=== PATIENT | female | born 1965 | race Caucasian/White ===

== ENCOUNTER 2018-09-08 14:40 | Emergency (ER) | payer MEDICAID, OTHER ==
--- NOTE | 2018-09-08 15:02 | ED.PDOC ---
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 Timing/Duration: 1-3 hours Severity: moderate Improving Factors: nothing Worsening Factors: nothing Associated Symptoms: other - see hpi Allergies/Adverse Reactions: Allergies Citalopram [From Celexa] Allergy (Verified 09/08/18 15:00) Hydromorphone [From Dilaudid] Allergy (Verified 09/08/18 15:00) Lamotrigine [From Lamictal] Allergy (Verified 09/08/18 15:00) Morphine Allergy (Verified 09/08/18 15:00) Oxcarbazepine [From Trileptal] Allergy (Verified 09/08/18 15:00) Review of Systems - Review of Systems Constitutional: States: no symptoms reported EENTM: States: no symptoms reported Respiratory: States: no symptoms reported Cardiology: States: see HPI Gastrointestinal/Abdominal: States: no symptoms reported Genitourinary: States: no symptoms reported Musculoskeletal: States: no symptoms reported All other Systems: Reviewed and Negative, No Change from Baseline Past Medical History (General) - Patient Medical History Hx Seizures: Yes Hx Stroke: Yes Hx Hypertension: Yes Surgical History: cholecystectomy, other - btl,knee - Vaccination History Hx Tetanus, Diphtheria Vaccination: Yes Hx Influenza Vaccination: Yes Hx Pneumococcal Vaccination: No - Social History Hx Tobacco Use: Yes - Activities of Daily Living Hospice Agency (if applicable):: None - Female History Patient is a Female of Child Bearing Age (10 -59 yrs old): No Patient : No Family Medical History - Family History Mother Family History: Unknown Hx Family Stroke: Yes - brother Hx Cardiac Disease: Yes - parents Hx Family Cancer: Yes - dad brother-lungs Physical Exam - Physical Exam General Appearance: Alert, Comfortable, No apparent distress Eye Exam: bilateral normal Ears, Nose, Throat: hearing grossly normal, normal ENT inspection, normal pharynx Neck: non-tender, full range of motion, supple, normal inspection Respiratory: chest non-tender, lungs clear, normal breath sounds Cardiovascular/Chest: normal peripheral pulses, regular rate, rhythm, no murmur Peripheral Pulses: radial,right: 2+, radial,left: 2+ Gastrointestinal/Abdominal: non tender, soft, no organomegaly Back Exam: no CVA tenderness, no vertebral tenderness Extremity: no pedal edema, no calf tenderness Neurologic: alert, oriented x 3 Skin Exam: normal color, warm/dry Progress - Progress Progress: 09/08/18 19:36 Vital Signs - 8 hr 09/08/18 09/08/18 09/08/18 14:40 14:49 15:40 Temperature 97.8 F Pulse Rate [ 58 L 62 radial] Respiratory 18 18 18 Rate Blood Pressure 146/83 147/79 [Left Arm] O2 Sat by Pulse 94 L 95 Oximetry 09/08/18 09/08/18 09/08/18 16:19 16:25 17:00 Temperature Pulse Rate [ 67 66 63 radial] Respiratory 16 16 18 Rate Blood Pressure 138/74 113/65 114/63 [Left Arm] O2 Sat by Pulse 91 L 96 95 Oximetry 09/08/18 09/08/18 18:00 18:39 Temperature 97.9 F Pulse Rate [ 62 58 L radial] Respiratory 16 16 Rate Blood Pressure 103/60 116/91 [Left Arm] O2 Sat by Pulse 95 93 L Oximetry She was sound asleep while in ER. 09/08/18 19:41 - Results/Orders Results/Orders: 09/08/18 18:15 EKG STAT Laboratory Results - last 24 hr 09/08/18 09/08/18 09/08/18 15:54 15:58 16:08 WBC 8.8 RBC 4.83 Hgb 14.2 Hct 43.7 MCV 90.4 MCH 29.4 MCHC 32.5 L RDW 15.2 H Plt Count 231 MPV 9.2 Absolute Neuts (auto) 5.50 Absolute Lymphs (auto) 2.40 Absolute Monos (auto) 0.50 Absolute Eos (auto) 0.30 Absolute Basos (auto) 0.10 Neutrophils % 62.2 Lymphocytes % 27.3 Monocytes % 5.8 Eosinophils % 3.8 Basophils % 0.9 PT 10.0 INR 1.00 PTT (SP) 25.9 D-Dimer, Quantitative 0.40 Sodium 137 Potassium 3.8 Chloride 100 L Carbon Dioxide 29 Anion Gap 11.8 L BUN 11 Creatinine 1.01 BUN/Creatinine Ratio 10.9 Random Glucose 92 Serum Osmolality 272.9 L Calcium 9.2 Magnesium 1.9 Total Bilirubin 0.5 Direct Bilirubin < 0.1 Indirect Bilirubin 0.4 AST 19 ALT 22 Alkaline Phosphatase 82 Creatine Kinase 54 CK-MB (CK-2) 0.8 CK-MB (CK-2) % 1.48 Troponin I < 0.02 B-Natriuretic Peptide 13.2 Serum Total Protein 7.0 Albumin 3.5 Urine Color Yellow Urine Appearance Clear Urine pH 7.0 Ur Specific [place] 1.010 Urine Protein Negative Urine Glucose (UA) Negative Urine Ketones Negative Urine Blood Trace-intact H Urine Nitrite Negative Urine Bilirubin Negative Urine Urobilinogen 0.2 Ur Leukocyte Esterase Negative Urine RBC 0-1 Urine WBC 0-1 Ur Epithelial Cells 0-1 Urine Bacteria 0 09/08/18 18:14 WBC RBC Hgb Hct MCV MCH MCHC RDW Plt Count MPV Absolute Neuts (auto) Absolute Lymphs (auto) Absolute Monos (auto) Absolute Eos (auto) Absolute Basos (auto) Neutrophils % Lymphocytes % Monocytes % Eosinophils % Basophils % PT INR PTT (SP) D-Dimer, Quantitative Sodium Potassium Chloride Carbon Dioxide Anion Gap BUN Creatinine BUN/Creatinine Ratio Random Glucose Serum Osmolality Calcium Magnesium Total Bilirubin Direct Bilirubin Indirect Bilirubin AST ALT Alkaline Phosphatase Creatine Kinase CK-MB (CK-2) CK-MB (CK-2) % Troponin I < 0.02 B-Natriuretic Peptide Serum Total Protein Albumin Urine Color Urine Appearance Urine pH Ur Specific [place] Urine Protein Urine Glucose (UA) Urine Ketones Urine Blood Urine Nitrite Urine Bilirubin Urine Urobilinogen Ur Leukocyte Esterase Urine RBC Urine WBC Ur Epithelial Cells Urine Bacteria - EKG/XRAY/CT EKG: Sinus, nonspecific ST T wave Chg Comments: hr-54 XRAY: chest - no acute abnormalities - Additional EKG/XRAY/Consults EKG #2: Sinus, nonspecific ST T wave Chg Comments: HR-62 Departure - Departure Clinical Impression: Chest pain Qualifiers: Chest pain type: unspecified Qualified Code(s): R07.9 - Chest pain, unspecified Time of Disposition: 19:37 Disposition: Discharge to Home or Self Care Condition: Fair Departure Forms: ED Discharge - Pt. Copy, Patient Portal Self Enrollment Instructions: Chest Pain (DC), Chest Pain Referrals: ZENOBIA LANDRUM [Referring] - 1-2 Weeks Additional Instructions: Continue with Baby Aspirin 81 mg daily;Follow up with primary Md 09 Sep 2018 for recheck;Cll up Dr. Prado office for further cardiac evaluation as per your Md,s recommendation;Return to Emergency Room as needed
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
[2018-09-08] MEDS ORDERED: NITROGLYCERIN 0.4 MG 25 EA TAB SL ONE (15:54)
[2018-09-08] MEDS ORDERED: ASPIRIN (CHEWABLE) 81 MG TAB PO ONE (15:54)
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
[2018-09-08 18:40] VITALS: BP 116/91; TEMP 97.9; O2SAT 93
== END 2018-09-08 19:35 | disposition left against medical advice (07) ==
LOC: ER 14:40
DX: R07.9 Chest pain, unspecified (principal); I10 Essential (primary) hypertension; Z53.29 Procedure and treatment not carried out because of patient's decision for other reasons; Z90.49 Acquired absence of other specified parts of digestive tract; Z86.73 Personal history of transient ischemic attack (TIA), and cerebral infarction without residual deficits; Z87.891 Personal history of nicotine dependence; Z88.8 Allergy status to other drugs, medicaments and biological substances; Z88.5 Allergy status to narcotic agent